=== PATIENT | female | born 1965 | race Caucasian/White ===

== ENCOUNTER → 2016-12-02 | Outpatient (CLI) | payer BC ==
--- NOTE | 2016-12-03 08:54 | XR ---
Cervical spine HISTORY: Neck pain 5 views of the cervical spine No comparisons There is multilevel facet arthropathy. There is a spinal curvature present. Multilevel spondylosis is noted. Foraminal encroachment at C3-4, C4-5, C5-6 noted due to uncovertebral joint hypertrophy and f acet arthropathy. Loss of disc height is present at C3-4, C4-5, C5-6 and C6-7. Prevertebral soft tiss ues are normal. Cervical vertebral bodies show preserved height and bone mineralization. Minimal retr olisthesis grade 1 C3-4. IMPRESSION: Degenerative disc disease, facet arthropathy, scoliosis and foraminal encroachment. Cervi sindhu MRI may be of benefit.
== END ==
LOC: RADXRMAIN 14:35
PROVIDERS: ATTEND Family Medicine
DX: M99.71 Connective tissue and disc stenosis of intervertebral foramina of cervical region (principal); M50.30 Other cervical disc degeneration, unspecified cervical region; M46.82 Other specified inflammatory spondylopathies, cervical region; M41.82 Other forms of scoliosis, cervical region
CPT/HCPCS: 72050

== ENCOUNTER → 2016-12-19 | Outpatient (CLI) | payer BC ==
--- NOTE | 2016-12-19 21:24 | MR ---
MRI CERVICAL SPINE: CLINICAL HISTORY: Cervical spondylosis per order. Headache with neck pain for years per patient. TECHNIQUE: Multiplanar, multisequence imaging of the cervical spine is performed without IV contrast. COMPARISON: Cervical spine x-ray December 02, 2016. FINDINGS: Sagittal images of the cervical spine show the craniocervical junction to appear within nor mal limits. The cervical and upper thoracic spinal cord is normal in course, caliber, and signal. V ertebral alignment is straightened. There is slight grade 1 retrolisthesis of C3 on C4, C4 on C5, C5 on C6. The vertebral body heights are normal. There is moderate disc space narrowing and spurring at C4-C5, C5-C6, C6-C7 levels. Posterior disc herniations are seen at these levels on sagittal images mo st prominent at C6-C7 level as well as at C7-T1 and T1-T2 levels. There is heterogeneous endplate kiki nges throughout the mid to lower cervical spine.. Axial images show the C2-C3 level to appear within normal limits. Axial images at C3-C4 level show broad-based posterior disc protrusion effacing anterior thecal sac a nd causing mild to moderate bilateral neural foraminal narrowing with some posterior marginal spurrin g present. Axial images at C4-C5 level show broad-based central disc protrusion effacing anterior thecal sac, bi lateral neural foramina are patent on axial image 28. Axial images at C5-C6 level show broad-based right paracentral disc protrusion effacing anterior thec al sac and causing mild right greater than left neural foraminal narrowing. Axial images at C6-C7 level show broad-based right paracentral disc protrusion effacing anterolateral thecal sac, bilateral neural foramina are patent. Axial images at C7-T1 level are felt within normal limits. There appear to be subcentimeter T2 hyperintense lesions throughout the thyroid gland including large st in thyroid isthmus on axial image 10. IMPRESSION: Multilevel spondylolisthesis and degenerative change in the cervical spine most prominent at C3-C4 through C5-C6 levels with further details as noted in body of report.
== END | disposition home or self-care (01) ==
LOC: RADMRIMAIN 18:33
PROVIDERS: ATTEND Family Medicine
DX: M43.12 Spondylolisthesis, cervical region (principal); M47.812 Spondylosis without myelopathy or radiculopathy, cervical region
CPT/HCPCS: 72141

== ENCOUNTER → 2018-08-15 | Outpatient (CLI) | payer BC ==
[2018-08-15 10:51] LABS: Basophils % (A) 1 %; Eosinophils # (A) 0.1 k/uL (0-0.7); Eosinophils % (A) 2 %; HCT 46.1 % (34.0-46.0); HGB 15.2 gm/dL (11.4-16.0); Lymphocytes # (A) 1.7 k/uL (1.0-4.8); Lymphocytes % (A) 31 %; MCH 29.9 pg (25.0-35.0); MCHC 32.9 g/dL (31.0-37.0); MCV 91.1 fL (80.0-100.0); Mean Platelet Volume 6.9; Monocytes # (A) 0.4 k/uL (0-1.0); Monocytes % (A) 6 %; Neutrophils # (A) 3.2 k/uL (1.3-7.7); Neutrophils % (A) 59 %; Platelet Count 216 k/uL (150-450); RBC 5.06 m/uL (3.80-5.40); RDW 13.4 % (11.5-15.5); WBC 5.5 k/uL (3.8-10.6)
[2018-08-15 16:26] LABS: Albumin 4.3 g/dL (3.80-4.90); Albumin/Globulin Ratio 1.95 (1.20-2.10); Anion Gap 8.8 mmol/L (4.00-12.00); Calcium 9.3 mg/dL (8.7-10.3); Carbon Dioxide 27.2 mmol/L (21.6-31.8); Globulin 2.2 g/dL (1.6-3.3); Potassium 4.6 mmol/L (3.5-5.5); Total Bilirubin 0.5 mg/dL (0.3-1.2); Total Protein 6.5 g/dL (6.2-8.2)
[2018-08-15 16:34] LABS: T4, Free (Free Thyroxine) 1.1 ng/dL (0.80-1.80)
[2018-08-15 20:22] LABS: Hemoglobin A1C 5.4 % (4.0-6.0)
[2018-08-17 05:04] LABS: Herpes simplex I and/or II IgM 0.51 INDEX (<=0.90); Herpes simplex IgG I Ab 0.04 (< or = 0.90); Herpes simplex IgG II Ab 0.09 (< or = 0.90)
[2018-08-17 10:44] LABS: HIV 1 AB Non-Reactive (Non-Reactive); HIV AB P24 Non-Reactive (Non-Reactive); HIV P24 AG Non-Reactive (Non-Reactive)
== END | disposition home or self-care (01) ==
LOC: LABWHC1 09:46
PROVIDERS: ATTEND Family Medicine
DX: Z00.00 Encounter for general adult medical examination without abnormal findings (principal); Z20.2 Contact with and (suspected) exposure to infections with a predominantly sexual mode of transmission; Z20.6 Contact with and (suspected) exposure to human immunodeficiency virus [HIV]; Z20.828 Contact with and (suspected) exposure to other viral communicable diseases; Z78.0 Asymptomatic menopausal state
CPT/HCPCS: 36415; 80053; 80061; 83001; 83036; 84439; 84443; 85025; 86694; 86695; 86696; 86780; 87390

== ENCOUNTER → 2019-07-29 | Outpatient (CLI) | payer BC ==
[2019-07-29 17:11] LABS: Basophils % (A) 0 %; Eosinophils # (A) 0.2 k/uL (0-0.7); Eosinophils % (A) 3 %; HGB 14.5 gm/dL (11.4-16.0); Lymphocytes # (A) 2.4 k/uL (1.0-4.8); Lymphocytes % (A) 36 %; MCH 31.4 pg (25.0-35.0); MCHC 34.5 g/dL (31.0-37.0); MCV 91.1 fL (80.0-100.0); Mean Platelet Volume 7.3; Monocytes # (A) 0.4 k/uL (0-1.0); Monocytes % (A) 5 %; Neutrophils # (A) 3.6 k/uL (1.3-7.7); Neutrophils % (A) 54 %; Platelet Count 245 k/uL (150-450); RBC 4.62 m/uL (3.80-5.40); RDW 13.5 % (11.5-15.5); WBC 6.7 k/uL (3.8-10.6)
--- NOTE | 2019-07-29 22:51 | XR ---
EXAMINATION TYPE: XR chest 2V DATE OF EXAM: 07/29/2019 COMPARISON: NONE HISTORY: Cough for 3 months TECHNIQUE: Frontal and lateral views of the chest are obtained. FINDINGS: Heart and mediastinum are normal. Lungs are clear. Diaphragm is normal. Bony thorax is int act. Pulmonary vascularity is normal. IMPRESSION: Normal chest. Normal heart.
[2019-07-30 10:06] LABS: IgG Subclass 3 20.2 mg/dL (11.0-85.0); IgG Subclass 4 15.4 mg/dL (3.0-175.0)
== END | disposition home or self-care (01) ==
LOC: LABWHC1 16:48
PROVIDERS: ATTEND Nurse Practitioner
DX: R05 Cough (principal); J45.909 Unspecified asthma, uncomplicated
CPT/HCPCS: 36415; 71046; 82784; 82785; 82787; 85025; 86003; 86317

== ENCOUNTER → 2020-04-13 | Outpatient (CLI) | payer BC | END | disposition home or self-care (01) | LOC: LABWHC1 13:10 | PROVIDERS: ATTEND Family Medicine | DX: Z20.828 Contact with and (suspected) exposure to other viral communicable diseases (principal) | CPT/HCPCS: U0003; C9803 ==

== ENCOUNTER → 2022-07-31 | Outpatient (CLI) | payer BC ==
--- NOTE | 2022-07-31 10:37 | XR ---
EXAMINATION TYPE: XR chest 2V DATE OF EXAM: 07/31/2022 COMPARISON: 07/29/2019 TECHNIQUE: PA and lateral views submitted. HISTORY: Cough FINDINGS: The lungs are clear and there is no pneumothorax, pleural effusion, or focal pneumonia. Heart size normal with previous surgery noted. No overt failure. Hypertrophic and degenerative changes of the sp ine. IMPRESSION: 1. No acute process.
== END | disposition home or self-care (01) ==
LOC: RADXRMAIN 10:09
PROVIDERS: ATTEND Family Medicine
DX: J18.0 Bronchopneumonia, unspecified organism (principal)
CPT/HCPCS: 71046

== ENCOUNTER 2022-08-21 19:09 | Emergency (ER) | payer BC ==
[2022-08-21 19:14] VITALS: TEMP 98
[2022-08-21] MEDS ORDERED: FAMOTIDINE 20 MG/2 ML VIAL IV STA (19:31)
[2022-08-21] MEDS ORDERED: methylPREDNISolone SOD SUCCI 125 MG/2 ML VIAL IV STA (19:31)
[2022-08-21] MEDS ORDERED: diphenhydrAMINE 50 MG/ML 1 ML VIAL IVP STA (19:31)
[2022-08-21 20:38] VITALS: BP 138/68; PULSE 91; RESP 15
--- NOTE | 2022-08-21 20:46 | ED ---
General Adult HPI - General Chief complaint: Allergic Reaction Stated complaint: Medication reaction Time Seen by Provider: 08/21/22 19:19 Source: patient, RN notes reviewed, old records reviewed Mode of arrival: ambulatory Limitations: no limitations - History of Present Illness Initial comments: This is a 57-year-old female presents emergency Department with hives and itching and redness on her neck arms and upper chest. Patient states she has no difficulty breathing or throat closing. Patient states she took an amoxicillin approximately one hour prior to this event. Patient is ALLERGIC to other medications swelling she believes she is having ALLERGIC reaction. Patient states she's taken amoxicillin for congestion in her head she states she started been on Zithromax twice and so they switched her to amoxicillin. Patient denies ever having had a problem with penicillin in the past. Patient denies any chest pain. Patient denies any shortness of breath. Patient denies any abdominal pain patient denies nausea vomiting diarrhea. - Related Data Home Medications Medication Instructions Recorded Confirmed Aspirin EC [Ecotrin] 81 mg PO HS 11/29/14 11/30/14 Omeprazole [PriLOSEC] 20 mg PO HS 11/29/14 11/30/14 amLODIPine [Norvasc] 5 mg PO HS 11/29/14 11/30/14 Previous Rx's Medication Instructions Recorded predniSONE [Deltasone] 40 mg PO DAILY #8 tab 08/21/22 Allergies Allergy/AdvReac Type Severity Reaction Status Date / Time moxifloxacin HCl Allergy Rash/Hives Verified 08/21/22 19:15 [From Avelox] Sulfa (Sulfonamide Allergy Rash/Hives Verified 08/21/22 19:15 Antibiotics) sulfamethoxazole Allergy Rash/Hives Verified 08/21/22 19:15 [From Bactrim] trimethoprim [From Bactrim] Allergy Rash/Hives Verified 08/21/22 19:15 Review of Systems ROS Statement: Those systems with pertinent positive or pertinent negative responses have been documented in the HPI. ROS Other: All systems not noted in ROS Statement are negative. Past Medical History Past Medical History: CVA/TIA, GERD/Reflux, Hypertension, Osteoarthritis (OA) Additional Past Medical History / Comment(s): had stroke 2 yrs. ago, occasional lightheaded, hx. migraines, had root canal in June-still w/infection in tooth-will let drs. office know History of Any Multi-Drug Resistant Organisms: None Reported Past Surgical History: Orthopedic Surgery Additional Past Surgical History / Comment(s): foot surg., colonoscopy Past Anesthesia/Blood Transfusion Reactions: No Reported Reaction Past Psychological History: No Psychological Hx Reported Smoking Status: Never smoker Past Alcohol Use History: Rare Past Drug Use History: None Reported - Past Family History Mother Family Medical History: No Reported History General Exam - General Exam Comments Initial Comments: GENERAL: Patient is well-developed and well-nourished. Patient is nontoxic and well- hydrated and is in mild distress. ENT: Neck is soft and supple. No significant lymphadenopathy is noted. Oropharynx is clear. Moist mucous membranes. Neck has full range of motion without eliciting any pain. EYES: The sclera were anicteric and conjunctiva were pink and moist. Extraocular movements were intact and pupils were equal round and reactive to light. Eyelids were unremarkable. PULMONARY: Unlabored respirations. Good breath sounds bilaterally. No audible rales rhonchi or wheezing was noted. CARDIOVASCULAR: There is a regular rate and rhythm without any murmurs gallops or rubs. ABDOMEN: Soft and nontender with normal bowel sounds. SKIN: Patient's arms are erythematous her upper chest is very erythematous into her neck region. Patient has no hives on her back stomach or legs. Patient states she is quite a bit of erythema and hives in her groin. NEUROLOGIC: Patient is alert and oriented x3. Cranial nerves II through XII are grossly intact. Motor and sensory are also intact. Normal speech, volume and content. Symmetrical smile. MUSCULOSKELETAL: Normal extremities with adequate strength and full range of motion. LYMPHATICS: No significant lymphadenopathy is noted PSYCHIATRIC: Normal psychiatric evaluation. Limitations: no limitations Course Vital Signs 08/21/22 08/21/22 19:12 20:37 Temperature 98 F Pulse Rate 110 H 91 Respiratory 18 15 Rate Blood Pressure 160/82 138/68 O2 Sat by Pulse 96 100 Oximetry Medical Decision Making - Medical Decision Making Patient received Solu-Medrol Benadryl and Pepcid IV and she was feeling considerably better shortly thereafter. Patient never any difficulty breathing shortness of breath or throat closing. Disposition Clinical Impression: Allergic reaction Disposition: HOME SELF-CARE Condition: Good Instructions (If sedation given, give patient instructions): General Allergic Reaction (ED) Additional Instructions: Patient should take Benadryl when necessary for itching or redness. Patient should return to the emergency department as any feeling of her throat closing or difficulty breathing or shortness of breath or wheezing. Prescriptions: predniSONE [Deltasone] 40 mg PO DAILY #8 tab Is patient prescribed a controlled substance at d/c from ED?: No Referrals: Richie Fragoso DO [Primary Care Provider] - 1-2 days Time of Disposition: 20:46
== END 2022-08-21 20:57 | disposition home or self-care (01) ==
LOC: EC 19:09
DX: T36.0X5A Adverse effect of penicillins, initial encounter (principal); Z86.73 Personal history of transient ischemic attack (TIA), and cerebral infarction without residual deficits; K21.9 Gastro-esophageal reflux disease without esophagitis; I10 Essential (primary) hypertension; M19.90 Unspecified osteoarthritis, unspecified site; Z88.2 Allergy status to sulfonamides; Z79.82 Long term (current) use of aspirin; Z88.1 Allergy status to other antibiotic agents; Z79.899 Other long term (current) drug therapy
CPT/HCPCS: 99283; 96374; 96375 ×2; J1200; J2930

== ENCOUNTER → 2022-09-26 | Outpatient (CLI) | payer BC ==
--- NOTE | 2022-09-26 12:26 | CT ---
EXAMINATION TYPE: CT sinus wo con DATE OF EXAM: 09/26/2022 COMPARISON: None HISTORY: Chronic sinusitis, productive cough, ringing in ears CT DLP: 432.60 mGycm. Automated Exposure Control for Dose Reduction was Utilized. TECHNIQUE: CT scan of the sinuses is performed without contrast, axial images are obtained, coronal r eformatted images are also reviewed. FINDINGS: The paranasal sinuses including the frontal, ethmoid, sphenoid, and maxillary sinuses bila terally are well-aerated without abnormal opacification. The ostiomeatal complex is patent bilateral ly on the coronal images. Nasal septal deviation noted. Visualized portion of mastoid air cells show no abnormal opacification. The globes are intact bilate rally. IMPRESSION: The sinuses are clear and the ostiomeatal complex is patent bilaterally.
== END | disposition home or self-care (01) ==
LOC: RADCTMAIN 11:44
PROVIDERS: ATTEND Otolaryngology
DX: J32.9 Chronic sinusitis, unspecified (principal); H93.13 Tinnitus, bilateral
CPT/HCPCS: 70486

== ENCOUNTER → 2023-12-23 | Outpatient (CLI) | payer BC ==
--- NOTE | 2023-12-24 07:31 | XR ---
EXAM TYPE: LUMBAR SPINE X RAY SERIES COMPARISON: NONE HISTORY: Pain TECHNIQUE: 4 views are submitted. FINDINGS: Alignment is anatomic. The pedicles are intact. The transverse processes are intact. There is diff use osteopenia. Multilevel degenerative disc disease with severe changes L4-5 and L5-S1 and facet art hropathy. Mild loss of superior endplate height at T12 of indeterminate age. IMPRESSION: 1. Mild superior endplate compression fracture/deformity T12 indeterminate age. Consider follow-up CT scan. 2. Multilevel degenerative disc disease and facet arthropathy. A Yellow level critical message alert has been initiated for Richie Fragoso DO via the [employer] Critical Results System on 12/24/2023 7:29 AM. This message alert has been sent to Richie aguero DO via the preferences provided by the clinician for the receipt of Radiology Critical Findings. Message ID [id number].
--- NOTE | 2023-12-24 07:34 | XR ---
EXAMINATION TYPE: XR Hip Bilateral Complete DATE OF EXAM: 12/23/2023 COMPARISON: NONE HISTORY: Pain TECHNIQUE: 2 views submitted FINDINGS: Right hip: There is no evidence of erosive change or acute fracture. There is mild axial narrowing of joint. Spurring of the femoral head. Vascular calcifications noted. Mild hypertrophic changes of the acetabulum can be associated with femoral acetabular impingement. Left hip: Mild narrowing of the hip joint. No acute fracture or dislocation. Mild hypertrophic change s of the acetabulum can be associated with femoral acetabular impingement. IMPRESSION: 1. Mild bilateral hip arthropathy. If there is difficulty with weightbearing consider follow-up CT sc an.
== END | disposition home or self-care (01) ==
LOC: RADXRMAIN 16:00
PROVIDERS: ATTEND Family Medicine
DX: M51.37 Other intervertebral disc degeneration, lumbosacral region (principal); M47.817 Spondylosis without myelopathy or radiculopathy, lumbosacral region; M54.16 Radiculopathy, lumbar region; M12.852 Other specific arthropathies, not elsewhere classified, left hip; M12.851 Other specific arthropathies, not elsewhere classified, right hip
CPT/HCPCS: 72110; 73521